=== PATIENT | female | born 1980 | race Caucasian/White ===

== ENCOUNTER 2020-12-02 12:29 | Outpatient (CLI) | payer OTHER ==
[2020-12-02 22:31] LABS: SARS-CoV-2 PCR by NAA Not Detected (NotDetected)
== END 2020-12-02 12:30 | disposition home or self-care (01) ==
LOC: CSHLAB 12:29
PROVIDERS: ATTEND Surgery
DX: Z20.822 Contact with and (suspected) exposure to COVID-19 (principal)
CPT/HCPCS: 87635; U0003; U0005

== ENCOUNTER 2020-12-07 06:12 | Day surgery (SDC) | payer OTHER ==
[2020-12-04 10:02] VITALS: BMI 40.2
[2020-12-07] MEDS ORDERED: Lidocaine 1% MPF 2 ML VIAL ONE (06:47)
[2020-12-07] MEDS ORDERED: PROPOFOL 20 ML ONE (08:05)
[2020-12-07] MEDS ORDERED: Midazolam HCl 2 mg/2 ml Vial ONE (08:05)
[2020-12-07] MEDS ORDERED: Lidocaine 1% PF 5 ML VIAL ONE (08:05)
[2020-12-07] MEDS ORDERED: PROPOFOL 0 ML ONE (08:05)
[2020-12-07] MEDS ORDERED: Fentanyl 100 MCG/2 ML VIAL ONE (08:05)
== END 2020-12-07 09:45 | disposition home or self-care (01) ==
LOC: CSHSDC 06:12
PROVIDERS: ATTEND Surgery
DX: K29.30 Chronic superficial gastritis without bleeding (principal); K21.9 Gastro-esophageal reflux disease without esophagitis; E66.01 Morbid (severe) obesity due to excess calories; Z98.84 Bariatric surgery status; K44.9 Diaphragmatic hernia without obstruction or gangrene
CPT/HCPCS: 88305; J2250; J2704; J3010